=== PATIENT | female | born 1935 | race Two or more races ===

== ENCOUNTER → 2018-10-11 | Outpatient (CLI) | payer BC ==
[2018-10-11 10:45] LABS: Basophils # (auto) 0.1 uL; Eosinophils # (auto) 0.2 uL; Eosinophils % (auto) 3.5 % (0.0-7.0); Hematocrit 39.8 % (36.0-46.0); Hemoglobin 13.7 g/dL (12.2-16.2); Lymphocytes # (auto) 2.5 uL; Lymphocytes % (auto) 38.2 % (10.0-50.0); Mean Corpuscular Hemoglobin 30.5 pg (28.0-32.0); Mean Corpuscular Hgb Conc. 34.3 g/dL (32.0-36.0); Monocytes # (auto) 0.5 uL; Monocytes % (auto) 7.1 % (0.0-12.0); Neutrophils # (auto) 3.3 uL; Neutrophils % (auto) 50.2 % (37.0-80.0); Nucleated Red Blood Cells % 0.1 %; Platelet Count (auto) 224 10^3/uL (140-450); Red Blood Cells 4.48 10^6/uL (4.0-5.20); Red Cell Distribution Width 13.8 % (11.8-14.3); White Blood Cell 6.5 10^3/uL (4.4-10.8)
[2018-10-11 11:05] LABS: Albumin 3.9 g/dL (3.4-5.0); Calcium 9.1 mg/dL (8.5-10.1)
[2018-10-11 11:10] LABS: BUN/Creatinine Ratio 21.4; Bilirubin, Total 0.6 mg/dL (0.2-1.0); CRP High Sensitivity 0.3 mg/dL (< 0.3); Total Protein 7.8 g/dL (6.4-8.2)
== END | disposition home or self-care (01) ==
LOC: LAB 09:34
PROVIDERS: ATTEND Internal Medicine
DX: Z12.11 Encounter for screening for malignant neoplasm of colon (principal); I10 Essential (primary) hypertension
CPT/HCPCS: 36415; 80053; 80061; 82306; 84439; 84443; 85025; 85652; 86038; 86141; 86200; 86225; 86431

== ENCOUNTER → 2018-12-20 | Outpatient (CLI) | payer BC, MEDICARE | END | disposition home or self-care (01) | LOC: US 10:36 | PROVIDERS: ATTEND Internal Medicine | DX: N63.21 Unspecified lump in the left breast, upper outer quadrant (principal) | CPT/HCPCS: 19083; 88305; 88342; J2001; 10022; 76942 ==

== ENCOUNTER → 2018-12-27 | Outpatient (CLI) | payer BC, MEDICARE | END | disposition home or self-care (01) | LOC: US 09:19 | PROVIDERS: ATTEND Internal Medicine | DX: C50.412 Malignant neoplasm of upper-outer quadrant of left female breast (principal); D24.2 Benign neoplasm of left breast; Z17.0 Estrogen receptor positive status [ER+] | CPT/HCPCS: 10022; 19083; 76942; 88341 ==

== ENCOUNTER → 2019-02-08 | Outpatient (CLI) | payer BC ==
[2019-02-08 10:41] LABS: Basophils # (auto) 0.1 uL; Basophils % (auto) 1.2 % (0.0-2.0); Eosinophils # (auto) 0.2 uL; Eosinophils % (auto) 3.1 % (0.0-7.0); Hematocrit 39.2 % (36.0-46.0); Hemoglobin 13.2 g/dL (12.2-16.2); Lymphocytes # (auto) 2.5 uL; Lymphocytes % (auto) 43.9 % (10.0-50.0); Mean Corpuscular Hemoglobin 30.7 pg (28.0-32.0); Mean Corpuscular Hgb Conc. 33.7 g/dL (32.0-36.0); Monocytes # (auto) 0.5 uL; Monocytes % (auto) 8.9 % (0.0-12.0); Neutrophils # (auto) 2.5 uL; Neutrophils % (auto) 42.9 % (37.0-80.0); Nucleated Red Blood Cells % 0.1 %; Platelet Count (auto) 187 10^3/uL (140-450); Red Blood Cells 4.31 10^6/uL (4.0-5.20); Red Cell Distribution Width 13.6 % (11.8-14.3); White Blood Cell 5.7 10^3/uL (4.4-10.8)
[2019-02-08 11:03] LABS: Urine Bacteria NONE SEEN /hpf (None Seen); Urine Blood Negative /uL (Negative); Urine Specific Gravity 1.018 (1.001-1.035); Urine WBC 20 /hpf (0 - 5)
[2019-02-08 11:17] LABS: Albumin 3.6 g/dL (3.4-5.0); Potassium 3.5 mmol/L (3.5-5.1)
[2019-02-08 11:25] LABS: BUN/Creatinine Ratio 18.6; Bilirubin, Total 0.5 mg/dL (0.2-1.0); Calcium 9.1 mg/dL (8.5-10.1); Total Protein 7.1 g/dL (6.4-8.2)
[2019-02-08 11:26] LABS: Free T4 (Free Thyroxine) 1.1 ng/dL (0.89-1.76)
[2019-02-08 11:27] LABS: T3 Total 1.14 ng/mL (0.60-1.81)
== END | disposition home or self-care (01) ==
LOC: LAB 10:26
PROVIDERS: ATTEND Internal Medicine
DX: Z01.818 Encounter for other preprocedural examination (principal)
CPT/HCPCS: 36415; 80053; 80061; 81001; 82306; 82607; 83036; 84439; 84443; 84480; 85025

== ENCOUNTER → 2019-03-14 | Outpatient (CLI) | payer BC ==
[2019-03-14 11:55] LABS: Basophils # (auto) 0.1 uL; Basophils % (auto) 1.2 % (0.0-2.0); Eosinophils # (auto) 0.2 uL; Eosinophils % (auto) 3.5 % (0.0-7.0); Hematocrit 38.6 % (36.0-46.0); Lymphocytes # (auto) 3.4 uL; Lymphocytes % (auto) 48.2 % (10.0-50.0); Mean Corpuscular Hemoglobin 30.4 pg (28.0-32.0); Mean Corpuscular Hgb Conc. 33.7 g/dL (32.0-36.0); Mean Corpuscular Volume 90.1 fL (80.0-100.0); Monocytes # (auto) 0.6 uL; Monocytes % (auto) 8.7 % (0.0-12.0); Neutrophils # (auto) 2.7 uL; Neutrophils % (auto) 38.4 % (37.0-80.0); Nucleated Red Blood Cells % 0.1 %; Platelet Count (auto) 212 10^3/uL (140-450); Red Blood Cells 4.28 10^6/uL (4.0-5.20); Red Cell Distribution Width 13.9 % (11.8-14.3)
[2019-03-14 12:19] LABS: INR 1.14 (0.9-1.15)
[2019-03-14 12:27] LABS: Urine Blood Negative /uL (Negative); Urine Specific Gravity 1.011 (1.001-1.035)
[2019-03-14 12:31] LABS: Albumin 3.6 g/dL (3.4-5.0); Calcium 9.1 mg/dL (8.5-10.1); Potassium 3.7 mmol/L (3.5-5.1)
[2019-03-14 12:34] LABS: BUN/Creatinine Ratio 20.8; Bilirubin, Total 0.4 mg/dL (0.2-1.0); Total Protein 7.2 g/dL (6.4-8.2)
== END | disposition home or self-care (01) ==
LOC: LAB 11:37
PROVIDERS: ATTEND Specialist
DX: Z01.812 Encounter for preprocedural laboratory examination (principal); H25.12 Age-related nuclear cataract, left eye; D68.32 Hemorrhagic disorder due to extrinsic circulating anticoagulants; Z79.01 Long term (current) use of anticoagulants
CPT/HCPCS: 36415; 80053; 81003; 85025; 85610; 85730

== ENCOUNTER → 2019-04-11 | Outpatient (CLI) | payer BC | END | disposition home or self-care (01) | LOC: XYW 07:41 | PROVIDERS: ATTEND Internal Medicine | DX: Z01.818 Encounter for other preprocedural examination (principal) | CPT/HCPCS: 93306 ==

== ENCOUNTER → 2019-04-16 | Outpatient (CLI) | payer BC ==
[~2019-04-16] VITALS: Ht 142.2 cm; Wt 66.2 kg
[~2019-04-16] MED LIST: ADENOSINE 56 MG in GIVE UN-DILUTED 0 ML IV STA
[2019-04-16 10:24] VITALS: BP 175/73
== END | disposition home or self-care (01) ==
LOC: XY 08:55
PROVIDERS: ATTEND Internal Medicine
DX: Z01.810 Encounter for preprocedural cardiovascular examination (principal)
CPT/HCPCS: 78452; 93017; A9500; J0153

== ENCOUNTER → 2019-05-09 | Outpatient (CLI) | payer BC ==
[~2019-05-09] MED LIST changes: -ADENOSINE 56 MG in GIVE UN-DILUTED 0 ML IV STA; +AMLO5TAB15 PO; +LOSA-39 PO
[2019-05-09 12:32] LABS: Urine Blood Negative /uL (Negative); Urine Specific Gravity 1.023 (1.001-1.035)
[2019-05-09 12:38] LABS: Basophils # (auto) 0.1 10 ^3/uL (0-0.2); Basophils % (auto) 1.2 % (0.0-2.0); Eosinophils # (auto) 0.2 10 ^3/uL (0-0.8); Eosinophils % (auto) 3.3 % (0.0-7.0); Hematocrit 39.3 % (36.0-46.0); Hemoglobin 13.4 g/dL (12.2-16.2); Lymphocytes # (auto) 2.8 10 ^3/uL (0.4-5.4); Lymphocytes % (auto) 43.7 % (10.0-50.0); Mean Corpuscular Hemoglobin 31.3 pg (28.0-32.0); Mean Corpuscular Hgb Conc. 34.2 g/dL (32.0-36.0); Mean Corpuscular Volume 91.6 fL (80.0-100.0); Monocytes # (auto) 0.5 10 ^3/uL (0-1.3); Monocytes % (auto) 7.5 % (0.0-12.0); Neutrophils # (auto) 2.8 10 ^3/uL (1.6-8.6); Neutrophils % (auto) 44.3 % (37.0-80.0); Nucleated Red Blood Cells % 0.1 %; Platelet Count (auto) 229 10^3/uL (140-450); Red Cell Distribution Width 13.7 % (11.8-14.3); White Blood Cell 6.4 10^3/uL (4.4-10.8)
[2019-05-09 13:30] LABS: INR 1.18 (0.9-1.15); Partial Thromboplastin Time 27.3 sec (23.64-32.05)
[2019-05-09 13:40] LABS: Albumin 3.9 g/dL (3.4-5.0); Calcium 9.5 mg/dL (8.5-10.1); Potassium 3.9 mmol/L (3.5-5.1)
[2019-05-09 13:43] LABS: BUN/Creatinine Ratio 24.7; Bilirubin, Total 0.6 mg/dL (0.2-1.0); Total Protein 7.6 g/dL (6.4-8.2)
== END | disposition home or self-care (01) ==
LOC: LAB 11:58
PROVIDERS: ATTEND Specialist
DX: Z01.812 Encounter for preprocedural laboratory examination (principal); H25.11 Age-related nuclear cataract, right eye; D68.32 Hemorrhagic disorder due to extrinsic circulating anticoagulants; Z79.01 Long term (current) use of anticoagulants
CPT/HCPCS: 36415; 80053; 81003; 85025; 85610; 85730

== ENCOUNTER 2019-05-24 07:56 | Day surgery (SDC) | payer BC ==
[2019-05-23 10:08] LABS: Basophils # (auto) 0 10 ^3/uL (0-0.2); Basophils % (auto) 0.7 % (0.0-2.0); Eosinophils # (auto) 0.2 10 ^3/uL (0-0.8); Eosinophils % (auto) 2.5 % (0.0-7.0); Hematocrit 40.7 % (36.0-46.0); Hemoglobin 13.5 g/dL (12.2-16.2); Lymphocytes # (auto) 2.9 10 ^3/uL (0.4-5.4); Lymphocytes % (auto) 41.8 % (10.0-50.0); Mean Corpuscular Hemoglobin 30.7 pg (28.0-32.0); Mean Corpuscular Hgb Conc. 33.3 g/dL (32.0-36.0); Mean Corpuscular Volume 92.1 fL (80.0-100.0); Monocytes # (auto) 0.5 10 ^3/uL (0-1.3); Monocytes % (auto) 7.4 % (0.0-12.0); Neutrophils # (auto) 3.3 10 ^3/uL (1.6-8.6); Neutrophils % (auto) 47.6 % (37.0-80.0); Platelet Count (auto) 225 10^3/uL (140-450); Red Blood Cells 4.41 10^6/uL (4.0-5.20); Red Cell Distribution Width 13.6 % (11.8-14.3); White Blood Cell 6.9 10^3/uL (4.4-10.8)
[2019-05-23 10:26] LABS: Albumin 3.9 g/dL (3.4-5.0); Calcium 9.6 mg/dL (8.5-10.1); Potassium 3.4 mmol/L (3.5-5.1)
[2019-05-23 10:29] LABS: INR 1.18 (0.9-1.15); Partial Thromboplastin Time 27.6 sec (23.64-32.05)
[2019-05-23 10:30] LABS: BUN/Creatinine Ratio 18.6; Bilirubin, Total 0.6 mg/dL (0.2-1.0); Total Protein 7.7 g/dL (6.4-8.2)
[~2019-05-24] VITALS: Ht 142.2 cm; Wt 66.2 kg
[2019-05-24] MEDS ORDERED: IODIXANOL 320MG/ML 100ML BTL IV ONE ×2 (08:22→09:43)
[2019-05-24] MEDS ORDERED: LIDOCAINE 2%HCL (LOCAL ANESTH.) INJ 20ML MDV ONE (08:22)
[2019-05-24] MEDS ORDERED: HEPARIN SODIUM (PORCINE) 5000 UNITS/ML 1ML VIAL ONE (09:02)
[2019-05-24] MEDS ORDERED: ANGIOMAX 250 MG VIAL IV ONE (09:02)
[2019-05-24] MEDS ORDERED: MIDAZOLAM HCL 1MG/1ML-2 ML VIAL ONE (09:03)
[2019-05-24] MEDS ORDERED: fentaNYL CITRATE 100 MCG/2 ML VL ONE (09:03)
[2019-05-24] MEDS ORDERED: VERAPAMIL 2.5MG/ML INJ 2ML VIAL IV ONE (09:03)
[2019-05-24] MEDS ORDERED: SODIUM CHL 0.9% 50 ML ONE ×2 (09:03→09:38)
[2019-05-24] MEDS ORDERED: NITROGLYCERIN 5MG/ML 10ML VIAL IV ONE (09:38)
[2019-05-24] MEDS ORDERED: ASPirin 325 MG TAB ONE (09:51)
[2019-05-24] MEDS ORDERED: TICAGRELOR 90 MG TAB ONE (09:51)
[2019-05-24] MEDS ORDERED: ACETAMINOPHEN 500 MG TAB PO PRN (12:45)
[2019-06-17] MEDS ORDERED: ASPI-404 PO (08:47)
[2019-06-17] MEDS ORDERED: LOSA-69 PO (08:47)
[2019-06-17] MEDS ORDERED: TICA90TA PO (08:47)
== END 2019-05-24 15:15 | disposition home or self-care (01) ==
LOC: CATH 07:56
PROVIDERS: ATTEND Internal Medicine
DX: R94.39 Abnormal result of other cardiovascular function study (principal); I25.10 Atherosclerotic heart disease of native coronary artery without angina pectoris; C50.919 Malignant neoplasm of unspecified site of unspecified female breast; I10 Essential (primary) hypertension; Z79.899 Other long term (current) drug therapy; Z98.890 Other specified postprocedural states
CPT/HCPCS: 36415; 80053; 85025; 85610; 85730; 93458; C1725; C1769; C1874; C1887; C1894; C9600; J0583; J1644; J2250; J3010; J3490; Q9967; 99152; 99153

== ENCOUNTER 2019-06-19 06:23 | Inpatient (IN) | payer BC ==
[2019-06-17 09:14] LABS: Basophils # (auto) 0 10 ^3/uL (0-0.2); Basophils % (auto) 0.5 % (0.0-2.0); Eosinophils # (auto) 0.2 10 ^3/uL (0-0.8); Eosinophils % (auto) 2.6 % (0.0-7.0); Hematocrit 39.8 % (36.0-46.0); Hemoglobin 13.8 g/dL (12.2-16.2); Lymphocytes # (auto) 4.2 10 ^3/uL (0.4-5.4); Lymphocytes % (auto) 44.6 % (10.0-50.0); Mean Corpuscular Hemoglobin 31.6 pg (28.0-32.0); Mean Corpuscular Hgb Conc. 34.7 g/dL (32.0-36.0); Mean Corpuscular Volume 91.2 fL (80.0-100.0); Monocytes # (auto) 0.7 10 ^3/uL (0-1.3); Monocytes % (auto) 7.8 % (0.0-12.0); Neutrophils # (auto) 4.1 10 ^3/uL (1.6-8.6); Neutrophils % (auto) 44.5 % (37.0-80.0); Nucleated Red Blood Cells % 0.2 %; Platelet Count (auto) 236 10^3/uL (140-450); Red Blood Cells 4.36 10^6/uL (4.0-5.20); Red Cell Distribution Width 13.8 % (11.8-14.3); White Blood Cell 9.3 10^3/uL (4.4-10.8)
[2019-06-17 09:22] LABS: Urine Bacteria NONE SEEN /hpf (None Seen); Urine Blood Negative /uL (Negative); Urine Specific Gravity 1.007 (1.001-1.035); Urine WBC 4 /hpf (0 - 5)
[2019-06-17 09:31] LABS: Albumin 3.9 g/dL (3.4-5.0); BUN/Creatinine Ratio 11.5; Calcium 9.2 mg/dL (8.5-10.1)
[2019-06-17 09:34] LABS: INR 1.18 (0.9-1.15); Partial Thromboplastin Time 27.3 sec (23.64-32.05); Total Protein 7.8 g/dL (6.4-8.2)
[2019-06-17 09:37] LABS: Potassium 2.8 mmol/L (3.5-5.1)
[2019-06-19] VITALS (24 sets, daily range): BP systolic 96–132; BP diastolic 38–59
[~2019-06-19] VITALS: Ht 142.2 cm; Wt 72.4 kg
[~2019-06-19 06:23] MED LIST changes: +ASPI-404 PO; -LOSA-39 PO; +LOSA-69 PO; +TICA90TA PO
[2019-06-19] MEDS ORDERED: ceFAZolin 1GM/50ML 50 ML IV ONE (07:03)
[2019-06-19] MEDS ORDERED: POTASSIUM CHL 20MEQ/100ML 100 ML IV ONE ×3 (07:28→08:30)
[2019-06-19] MEDS ORDERED: LIDOCAINE 1% HCL (LOCAL ANESTH.) INJ 20ML MDV ONE (07:29)
[2019-06-19] MEDS ORDERED: SUCCINYLCHOLINE CHLORIDE 20 MG/ML 10ML VIAL IV ONE (07:29)
[2019-06-19] MEDS ORDERED: MIDAZOLAM HCL 1MG/1ML-2 ML VIAL ONE ×2 (07:35→13:26)
[2019-06-19] MEDS ORDERED: ETOMIDATE (2MG/ML) 20ML VIAL IV ONE (07:37)
[2019-06-19] MEDS ORDERED: ROCURONIUM 10MG/ML 10ML VIAL IV ONE (07:37)
[2019-06-19] MEDS ORDERED: METOCLOPRAMIDE HCL 5MG/ml INJ 2ml VIAL ONE (07:39)
[2019-06-19] MEDS ORDERED: fentaNYL CITRATE 100 MCG/2 ML VL ONE (07:52)
[2019-06-19] MEDS ORDERED: BUPIVACAINE W/ EPINEPH 0.25% INJ 50ML MDV ONE (07:55)
[2019-06-19] MEDS ORDERED: NALOXONE HCL 0.4 MG/ML VIAL IV PRN ×2 (08:00→14:45)
[2019-06-19] MEDS ORDERED: hydrALAZINE HCL 20 MG/ML VL IV PRN (08:00)
[2019-06-19] MEDS ORDERED: HYDROmorphone HCL 2 MG/ML VL IV PRN ×4 (08:00→14:45)
[2019-06-19] MEDS ORDERED: ONDANSETRON HCL 4 MG/2 ML VIAL IV PRN ×2 (08:00→14:45)
[2019-06-19] MEDS ORDERED: NEOSTIGMINE 1 MG/ML INJ (10mg/10ML VIAL) ONE ×2 (08:28→14:20)
[2019-06-19] MEDS ORDERED: GLYCOPYRROLATE 0.2 MG/ML 1ML VIAL ONE ×2 (08:28→14:20)
[2019-06-19] MEDS ORDERED: D5W/SOD CHL 0.45%/KCL 40MEQ 1,000 ML IV SCH (08:45)
[2019-06-19] MEDS ORDERED: ALBUMIN 5% 250 ML IV ONE (09:30)
[2019-06-19] MEDS ORDERED: ALBUMIN 25% 50 ML IV ONE (09:30)
[2019-06-19] MEDS ORDERED: MORPHINE SULF INJ 2 MG/ML SYRINGE 1ML IV PRN ×2 (10:15→12:30)
[2019-06-19] MEDS ORDERED: NITROGLYCERIN 0.4 MG SL TAB SL PRN ×2 (10:15→12:30)
[2019-06-19] MEDS ORDERED: NOREPINEPHRINE 8 MG/250ML KIT 250 ML IV ONE (10:18)
[2019-06-19] MEDS: NOREPINEPHRINE 8 MG/250ML KIT 250 ML IV SCH ×2 (10:43→16:34)
[2019-06-19 11:28] LABS: Hematocrit 28.9 % (36.0-46.0); Hemoglobin 9.7 g/dL (12.2-16.2)
[2019-06-19 11:41] LABS: INR 1.47 (0.9-1.15)
[2019-06-19] MEDS ORDERED: phytonadione 1 ML ONE (12:08)
[2019-06-19] MEDS: PHYTONADIONE (VIT K)10 MG/ML 1ML VIAL SUBCUT ONE ×2 (12:15→12:18)
[2019-06-19] MEDS: SODIUM CHLORIDE 0.9% 1,000 ML IV SCH (12:30)
[2019-06-19] MEDS ORDERED: SODIUM CHLORIDE 0.9% 500 ML IV ONE (12:30)
[2019-06-19] MEDS ORDERED: PHENYLEPHRINE HCL 10 MG/ML VL ONE (13:40)
[2019-06-19] MEDS ORDERED: diphenhdrAMINE HCL 50 MG/1 ML VL ONE (13:40)
[2019-06-19] MEDS ORDERED: GELATIN 1 SPONGE SIZE 100 TOP ONE (13:53)
[2019-06-19] MEDS ORDERED: ePHEDrine SULFATE 50 MG/ML AMP IV PRN (14:45)
[2019-06-19] MEDS: ceFAZolin 1GM/50ML 50 ML IV SCH ×2 (16:19→20:49)
[2019-06-19 16:38] LABS: Hematocrit 31.9 % (36.0-46.0); Hemoglobin 10.8 g/dL (12.2-16.2)
--- NOTE | 2019-06-19 17:30 | NUR ---
Admit to ICU JAYSON STAUFFER admitted to [facility] from recovery s/p LT mastectomy via hospital bed on bus driver/monitor, and portable 02. Patient connected to unit monitoring and oxygen, and weighed by bedscale. Patient awake and alert. No S/S of SOB/distress or pain. Patient saturation 98% at 2 LPM oxygen via nasal cannula. Levophed running at 30mcg/min via RT forearm. Ismeal wrap on chest, dry and intact. LT chest chest tubes draining serosanguinous. See interventions for complete assessment. Patient oriented to Sushma early RN, unit, room, bed, and unit policies regarding patient care and visiting hours. All questions and concerns addressed, patient verbalized understanding. Bed locked on low position, side rails up x2, bed alarms on at all times, call gaston within reach, instructed to call for needed assistance. Will continue to monitor.
--- NOTE | 2019-06-19 18:00 | NUR ---
IV removal RT upper arm IV swollen and tender, discontinued with sterile technique, catheter fully intact. Pressure dressing applied to site. Patient tolerated procedure well. Addendum: 06/20/19 at 1136 by Sushma Connor RN RT inner forearm
--- NOTE | 2019-06-19 18:38 | NUR ---
MRSA swab sent to lab
--- NOTE | 2019-06-19 19:45 | NUR ---
IV insertion IV access obtained, via clean sterile technique by inserting [22] gauge catheter at [RIGHT FOREARM] after [1] attempt(s). IV secured properly. No trauma to site. Patient tolerated well. NOTE: 2ND IV SITE
--- NOTE | 2019-06-19 20:00 | NUR ---
SHIFT OPENING MARLENI
--- NOTE | 2019-06-19 20:00 | NUR ---
SHIFT OPENING NOTE RECEIVED PATIENT AWAKE, ALERT AND ORIENTED X4. NO SOB OR DISTRESS NOTED. 8/10 PAIN TO CHEST AREA, WILL MEDICATE PER ORDER. POST OP LEFT MASTECTOMY AND EVACUATION OF HEMATOMA, [address] DRAINING RED OUTPUT. LUI WRAP AROUND CHEST. ON 2L N/C. ON LEVOPHED AT 30 MCG/MIN TO RIGHT WRIST. NO EXTRAVASATION NOTED. WILL START TITRATING DOWN PER PROTOCOL. ANDERSON CATH DRAINING YELLOW URINE TO GRAVITY. PHYSICAL ASSESSMENT COMPLETED, SEE INTERVENTIONS. INSTRUCTED ON POC AND TO CALL FOR ASSIST NEEDED. BED IS IN THE LOWEST POSITION WITH SIDE RAILS UP X2, CALL LIGHT IS WITHIN REACH.
[2019-06-19] MEDS: ACETAMINOPHEN/CODEINE#3 (300/30mg) TAB PO PRN (20:12)
--- NOTE | 2019-06-19 21:10 | NUR ---
RECEIVED A CALL FROM DEMARCUS MENCHACA. PASSWORD SET UP: SHANEL UPDATED HIM ON PATIENTS STATUS. TRANSFERRED PHONE CALL INTO PATIENTS ROOM.
[2019-06-20] VITALS (41 sets, daily range): BP systolic 91–117; BP diastolic 36–53
[2019-06-20] MEDS: NOREPINEPHRINE 8 MG/250ML KIT 250 ML IV SCH (01:48)
[2019-06-20] MEDS: SODIUM CHLORIDE 0.9% 1,000 ML IV SCH ×2 (01:57→18:13)
[2019-06-20] MEDS: ACETAMINOPHEN/CODEINE#3 (300/30mg) TAB PO PRN (03:09)
[2019-06-20 03:19] LABS: Basophils # (auto) 0 10 ^3/uL (0-0.2); Basophils % (auto) 0.4 % (0.0-2.0); Eosinophils # (auto) 0 10 ^3/uL (0-0.8); Eosinophils % (auto) 0.2 % (0.0-7.0); Hematocrit 24.8 % (36.0-46.0); Hemoglobin 8.7 g/dL (12.2-16.2); Lymphocytes # (auto) 2.4 10 ^3/uL (0.4-5.4); Lymphocytes % (auto) 29.1 % (10.0-50.0); Mean Corpuscular Hemoglobin 31.5 pg (28.0-32.0); Mean Corpuscular Hgb Conc. 34.9 g/dL (32.0-36.0); Mean Corpuscular Volume 90.4 fL (80.0-100.0); Monocytes # (auto) 0.9 10 ^3/uL (0-1.3); Monocytes % (auto) 10.7 % (0.0-12.0); Neutrophils # (auto) 4.9 10 ^3/uL (1.6-8.6); Neutrophils % (auto) 59.6 % (37.0-80.0); Platelet Count (auto) 115 10^3/uL (140-450); Red Blood Cells 2.75 10^6/uL (4.0-5.20); Red Cell Distribution Width 15.9 % (11.8-14.3); White Blood Cell 8.2 10^3/uL (4.4-10.8)
[2019-06-20 03:34] LABS: BUN/Creatinine Ratio 15.4; Calcium 6.7 mg/dL (8.5-10.1); Potassium 3.8 mmol/L (3.5-5.1)
--- NOTE | 2019-06-20 04:30 | NUR ---
MORNING HYGIENE CARE FULL BED BATH PERFORMED USING WARM SOAPY WASH CLOTHES. GOWN CHANGED. PARTIAL LINEN CHANGED. PATIENT REPOSITIONED FOR COMFORT. TOLERATED IT WELL.
[2019-06-20] MEDS: ceFAZolin 1GM/50ML 50 ML IV SCH ×3 (04:54→20:29)
[2019-06-20] MEDS: MORPHINE SULF INJ 2 MG/ML SYRINGE 1ML IV PRN (04:55)
--- NOTE | 2019-06-20 07:17 | NUR ---
END OF SHIFT REPORT GIVEN AND CARE ENDORSED TO JAVIER CHAMBERS.
--- NOTE | 2019-06-20 08:00 | NUR ---
Opening Shift Note Assumed care of patient, awake and alert. No S/S of distress/SOB or pain. Patient saturation 95% at 2 LPM oxygen via nasal cannula. Ismael wrap around chest, dry and intact, 2 RADHA draining serosanguinous. See interventions for complete assessment. Bed locked on low position, side rails up x2, bed alarms on at all times, call gaston within reach, instructed on POC and to call for assist PRN, will continue to monitor for changes Q1hr and PRN.
--- NOTE | 2019-06-20 10:13 | NUR ---
Dr Olvera at bedside, updated on patient's status. Patient seen and examined. No new orders at this time.
--- NOTE | 2019-06-20 10:57 | NUR ---
Dr Vital at bedside, updated on patient's status. Patient seen and examined. Will carry out new orders.
--- NOTE | 2019-06-20 11:00 | NUR ---
Patient complaining of RT arm pain 06/06, Dr Vital aware, will give Tramadol PRN.
--- NOTE | 2019-06-20 11:50 | NUR ---
Dr Johnson at bedside, updated on patient's status. Informed of patient's low BP, verbalized understanding. Patient seen and examined. Received verbal orders to start patient on Midodrine. Will also start patient on Plavix and Aspirin if ok with Dr Olvera.
[2019-06-20] MEDS ORDERED: traMADol HCL 50 MG TAB ONE (12:02)
[2019-06-20] MEDS: traMADol HCL 50 MG TAB PO PRN ×2 (12:03→19:52)
[2019-06-20] MEDS: MIDODRINE HCL 10 MG TAB PO SCH ×2 (12:04→18:13)
--- NOTE | 2019-06-20 13:00 | NUR ---
Paged Dr Olvera and called back, inquired if patient can be started on Aspirin and Plavix per Dr Alex MD states "Will wait until tomorrow."
--- NOTE | 2019-06-20 18:00 | NUR ---
RADHA # 1 - zero output RADHA # 2 - 25 ml
--- NOTE | 2019-06-20 19:00 | NUR ---
Drained another 50ml from RADHA #2
--- NOTE | 2019-06-20 20:00 | NUR ---
SHIFT OPENING NOTE RECEIVED PATIENT AWAKE, ALERT AND ORIENTED X4. NO SOB OR DISTRESS NOTED. 10/10 PAIN TO RIGHT ARM, WILL MEDICATE PER ORDER. POST OP LEFT MASTECTOMY AND EVACUATION OF HEMATOMA YESTERDAY, [address] DRAINING RED OUTPUT. LUI WRAP AROUND CHEST. ON 2L N/C. ANDERSON CATH DRAINING YELLOW URINE TO GRAVITY. PHYSICAL ASSESSMENT COMPLETED, SEE INTERVENTIONS. INSTRUCTED ON POC AND TO CALL FOR ASSIST NEEDED. BED IS IN THE LOWEST POSITION WITH SIDE RAILS UP X2, CALL LIGHT IS WITHIN REACH.
[2019-06-21] VITALS (10 sets, daily range): BP systolic 92–163; BP diastolic 41–64
[2019-06-21 03:58] LABS: Basophils # (auto) 0 10 ^3/uL (0-0.2); Eosinophils # (auto) 0.1 10 ^3/uL (0-0.8); Hematocrit 20.4 % (36.0-46.0); Monocytes # (auto) 0.8 10 ^3/uL (0-1.3)
[2019-06-21 04:00] LABS: Basophils % (auto) 0.6 % (0.0-2.0); Eosinophils % (auto) 1.6 % (0.0-7.0); Hemoglobin 7.1 g/dL (12.2-16.2); Lymphocytes % (auto) 29.1 % (10.0-50.0); Mean Corpuscular Hemoglobin 31.7 pg (28.0-32.0); Mean Corpuscular Hgb Conc. 35.1 g/dL (32.0-36.0); Mean Corpuscular Volume 90.6 fL (80.0-100.0); Neutrophils % (auto) 57.7 % (37.0-80.0); Nucleated Red Blood Cells % 0.2 %; Platelet Count (auto) 94 10^3/uL (140-450); Red Blood Cells 2.25 10^6/uL (4.0-5.20); Red Cell Distribution Width 15.8 % (11.8-14.3)
[2019-06-21 04:15] LABS: BUN/Creatinine Ratio 14.1; Calcium 6.9 mg/dL (8.5-10.1); Potassium 3.4 mmol/L (3.5-5.1)
[2019-06-21] MEDS: SODIUM CHLORIDE 0.9% 1,000 ML IV SCH (04:30)
[2019-06-21] MEDS: ceFAZolin 1GM/50ML 50 ML IV SCH ×3 (05:53→22:22)
[2019-06-21] MEDS: MIDODRINE HCL 10 MG TAB PO SCH ×3 (05:54→18:00)
--- NOTE | 2019-06-21 06:05 | NUR ---
MORNING HYGIENE CARE FULL BED BATH PERFORMED USING CHG WIPES AND WARM SOAPY WASH CLOTHES. GOWN CHANGED. PARTIAL LINEN CHANGED. ORAL CARE DONE. REPOSITIONED FOR COMFORT. TOLERATED IT WELL.
--- NOTE | 2019-06-21 07:10 | NUR ---
END OF SHIFT REPORT GIVEN AND CARE ENDORSED TO CORRIE CHAMBERS.
--- NOTE | 2019-06-21 08:00 | NUR ---
DR. RUSSO CALLED TO INFORM OF HGB OF 7.1 AWAITING CALL BACK.
--- NOTE | 2019-06-21 09:00 | NUR ---
Midline Placement: Patient educated on need for midline placement. All risks and benefits explained and all questions and concerns addresses prior to procedure. 18g/10cm midline inserted via right cephalic vein using Ultrasound. Sterile technique utilized. Blood return obtained from lumen and flushed easily with NS using proper technique. Midline secured with saline lock; biodisc and occlusive dressing applied. Primary RN notified. Midline lot #[id number]
--- NOTE | 2019-06-21 09:10 | NUR ---
DR. RUSSO CALLED TO INFORM OF HGB OF 7.1 AWAITING CALL BACK.
[2019-06-21] MEDS: CLOPIDOGREL BISULFATE 75 MG TAB PO SCH ×2 (10:00→16:43)
[2019-06-21] MEDS: ASPirin 81 mg TAB PO SCH ×2 (10:00→16:43)
--- NOTE | 2019-06-21 11:50 | NUR ---
1 UNIT OF [facility] STARTED TO INFUSE.
--- NOTE | 2019-06-21 11:50 | NUR ---
Dr. quevedo here to see patient. See MD noted and EMR for any new orders.
[2019-06-21] MEDS: Ensure HIGH Protein Chocolate 8oz Bottle PO SCH ×2 (12:00→18:27)
[2019-06-21] MEDS ORDERED: POTASSIUM CHL 20 Meq TABLET PO ONE (12:00)
--- NOTE | 2019-06-21 13:55 | NUR ---
[facility] INFUSION FINISHED. NO ADVERSE EFFECTS NOTED.
[2019-06-21 15:46] LABS: Hematocrit 26.9 % (36.0-46.0); Hemoglobin 9.2 g/dL (12.2-16.2)
--- NOTE | 2019-06-21 16:51 | NUR ---
UPDATED GRANDMANUELA KRAUS ON PATIENTS CURRENT POC. ANSWERED ALL QUESTIONS. EDUCATED TO CALL AT ANY TIME.
--- NOTE | 2019-06-21 17:52 | NUR ---
RADHA DRAIN #1 OUTPUT-100 #2 OUTPUT- 45
[2019-06-21] MEDS ORDERED: SENNA 8.6 MG TAB PO PRN (21:30)
[2019-06-21] MEDS: LACTULOSE 20Gm/30ML SOLN PO SCH (22:00)
[2019-06-21] MEDS: DOCUSATE SOD 100 MG CAP PO SCH (22:21)
[2019-06-22] MEDS: MIDODRINE HCL 10 MG TAB PO SCH ×3 (06:34→18:00)
[2019-06-22] MEDS: ceFAZolin 1GM/50ML 50 ML IV SCH ×3 (06:34→23:35)
--- NOTE | 2019-06-22 07:00 | NUR ---
Pt remained stable this shift. Denied pain. Both arms elevated on pillows throughout shift. Encouraged to drink ensure. RADHA's emptied this morning. Midline flushes and withdrawls well. Pt refused Lactulose last night and senna and colace were ordered and given instead. Report given to AM shift, care endorsed.
[2019-06-22 07:02] LABS: Basophils # (auto) 0 10 ^3/uL (0-0.2); Basophils % (auto) 0.4 % (0.0-2.0); Eosinophils # (auto) 0.2 10 ^3/uL (0-0.8); Eosinophils % (auto) 2.6 % (0.0-7.0); Hematocrit 24.6 % (36.0-46.0); Hemoglobin 8.6 g/dL (12.2-16.2); Lymphocytes # (auto) 1.6 10 ^3/uL (0.4-5.4); Lymphocytes % (auto) 23.1 % (10.0-50.0); Mean Corpuscular Hemoglobin 31.8 pg (28.0-32.0); Monocytes # (auto) 0.6 10 ^3/uL (0-1.3); Neutrophils # (auto) 4.6 10 ^3/uL (1.6-8.6); Neutrophils % (auto) 64.9 % (37.0-80.0); Nucleated Red Blood Cells % 0.2 %; Platelet Count (auto) 102 10^3/uL (140-450); Red Cell Distribution Width 15.5 % (11.8-14.3)
[2019-06-22 07:32] LABS: Potassium 3.7 mmol/L (3.5-5.1)
[2019-06-22 07:40] LABS: BUN/Creatinine Ratio 11.9; Calcium 8.3 mg/dL (8.5-10.1)
[2019-06-22 07:45] VITALS: BP 136/42
[2019-06-22] MEDS: Ensure HIGH Protein Chocolate 8oz Bottle PO SCH ×3 (08:10→18:25)
--- NOTE | 2019-06-22 09:00 | NUR ---
Patient had around 75% of breakfast, patient stated that her appetite is better than yesterday. No N/V noted. No active bleeding noted. Will confirm with MD with ASA and Plavix. Patient doesn't want to take Lactulose due to too strong for her.
[2019-06-22] MEDS: LACTULOSE 20Gm/30ML SOLN PO SCH ×2 (09:38→23:36)
[2019-06-22] MEDS: CLOPIDOGREL BISULFATE 75 MG TAB PO SCH (10:00)
[2019-06-22] MEDS: DOCUSATE SOD 100 MG CAP PO SCH ×2 (10:06→23:36)
[2019-06-22] MEDS: ASPirin 81 mg TAB PO SCH (11:07)
--- NOTE | 2019-06-22 11:15 | NUR ---
Dr. Biswas at the bedside, seen and examined patient at this time. Received new orders, plan of care discussed with patient, will continue to monitor lab and okay to transfer to Tele and taking ASA and Plavix.
--- NOTE | 2019-06-22 11:30 | NUR ---
PT at the bedside, patient walking by using front wheel walker, tolerated well.
[2019-06-22 11:36] VITALS: BP 159/89
--- NOTE | 2019-06-22 12:15 | NUR ---
Patient sitting on the chair, BP 159/89 mmHg, hold Midodrine at this time due to high BP.
--- NOTE | 2019-06-22 13:09 | NUR ---
Patient trying to use bedside commode, no BM. Still sitting on the chair. Had Lunch around 50%.
--- NOTE | 2019-06-22 13:40 | NUR ---
Report Report received from ALF[facility] Harper.
--- NOTE | 2019-06-22 13:55 | NUR ---
[facility] pt transferred to floor CRISTHIANJAYSON GIL Abel transferred to [address] via wheelchair on cardiac monitor technician (#[id number]) and portable 02. All patient medications and personal belongings transferred with patient to receiving floor. Patient care transferred to Gin CHAMBERS. Called her grandson (Willi) [phone] regarding transfer to Tele. Urine out put before transfer 700ml, JP1 30ml, JP2 20ml.
--- NOTE | 2019-06-22 13:55 | NUR ---
Patient Arrived Patient arrived to tele unit. No signs of distress at this time. Patient is currently laying in bed, respirations are even and unlabored. Safety precautions in place, will continue to monitor.
[2019-06-22 14:05] VITALS: BP 173/63
--- NOTE | 2019-06-22 14:35 | NUR ---
Assessment Physical assessment done. Patient shows no signs of distress at this time. Respirations even and unlabored on room air. Midline patent, flushes easily. RADHA drain 1 and 2 draining, sanguinous drainage. Doyle is secured, free of kinks, hung below bladder, clear yellow urine. Safety precautions, including restricted extremity precautions, in place. Will continue to monitor.
--- NOTE | 2019-06-22 14:40 | NUR ---
Surgical Site Assessment Patient had Left Modified Radical Mastectomy 06/19/2019. Denies pain at site. Dressing is clean, dry, and intact. RADHA 1 and 2: minimal sanguinous drainage.
--- NOTE | 2019-06-22 15:40 | NUR ---
Blood Pressure Blood pressure is currently 149/69, HR 108. Patient shows no signs of distress at this time. Respirations are even and unlabored. Safety precautions in place. Will continue to monitor.
--- NOTE | 2019-06-22 16:00 | NUR ---
Patient Rounds Patient sitting up in bed, no signs of distress at this time. Will continue to monitor.
[2019-06-22 17:00] VITALS: BP 139/68
--- NOTE | 2019-06-22 18:21 | NUR ---
Output RADHA drain output of sanguinous drainage: #1: 75mL output, #2 approximately 5mL. Doyle Bag output 850mL clear, yellow urine. Patient tolerated well, no signs of distress at this time. Respirations even and unlabored, will continue to monitor. Safety precautions in place.
--- NOTE | 2019-06-22 18:40 | NUR ---
Notified Notified Dr. Dunaway of held Midodrine due to patient BP 139/68. No new orders at this time.
[2019-06-22 19:32] LABS: Hematocrit 27.1 % (36.0-46.0); Hemoglobin 9.3 g/dL (12.2-16.2)
[2019-06-22 22:00] VITALS: BP 130/60
[2019-06-22] MEDS: MORPHINE SULF INJ 2 MG/ML SYRINGE 1ML IV PRN (23:41)
--- NOTE | 2019-06-23 03:00 | NUR ---
PT ASSISTED OOB TO BR AND NOTED TO AMB WITH STEADY GAIT. NO S/S OF ANY DISTRESS AT THIS TIME. PT STATES THAT SHE WAS UNABLE TO HAVE A BM AT THIS TIME.
[2019-06-23 05:00] VITALS: BP 151/68
--- NOTE | 2019-06-23 05:00 | NUR ---
RADHA DRAIN #1= 70MLS OF SANGUINEOUS DRAINAGE. RADHA#2= 5MLS SANGUINEOUS DRAINAGE.
[2019-06-23] MEDS: MIDODRINE HCL 10 MG TAB PO SCH ×3 (05:54→18:00)
[2019-06-23 06:05] LABS: Basophils # (auto) 0 10 ^3/uL (0-0.2); Basophils % (auto) 0.4 % (0.0-2.0); Eosinophils # (auto) 0.2 10 ^3/uL (0-0.8); Eosinophils % (auto) 2.9 % (0.0-7.0); Hematocrit 24.8 % (36.0-46.0); Hemoglobin 8.6 g/dL (12.2-16.2); Lymphocytes # (auto) 2.1 10 ^3/uL (0.4-5.4); Lymphocytes % (auto) 27.7 % (10.0-50.0); Mean Corpuscular Hemoglobin 31.9 pg (28.0-32.0); Mean Corpuscular Hgb Conc. 34.6 g/dL (32.0-36.0); Mean Corpuscular Volume 92.4 fL (80.0-100.0); Monocytes # (auto) 0.8 10 ^3/uL (0-1.3); Monocytes % (auto) 10.6 % (0.0-12.0); Neutrophils # (auto) 4.5 10 ^3/uL (1.6-8.6); Neutrophils % (auto) 58.4 % (37.0-80.0); Nucleated Red Blood Cells % 0.1 %; Platelet Count (auto) 140 10^3/uL (140-450); Red Blood Cells 2.69 10^6/uL (4.0-5.20); Red Cell Distribution Width 15.2 % (11.8-14.3); White Blood Cell 7.7 10^3/uL (4.4-10.8)
--- NOTE | 2019-06-23 06:20 | NUR ---
MASTECTOMY SITE REMAINS CDI AND OLD HEMATOMA SITE IS FLAT W/ SMALL BRUISE. APPEARS TO BE IMPROVING.
[2019-06-23 06:25] LABS: BUN/Creatinine Ratio 13.9; Calcium 8.5 mg/dL (8.5-10.1); Potassium 3.4 mmol/L (3.5-5.1)
[2019-06-23] MEDS: ceFAZolin 1GM/50ML 50 ML IV SCH ×3 (06:59→21:20)
--- NOTE | 2019-06-23 07:30 | NUR ---
Opening Note Assumed patient care from CYNTHIA RN.
[2019-06-23] MEDS: Ensure HIGH Protein Chocolate 8oz Bottle PO SCH ×3 (08:00→18:07)
--- NOTE | 2019-06-23 08:00 | NUR ---
Patient Rounds Patient is currently sitting up in bed. No signs of distress at this time. Respirations even and unlabored, denying pain at this time. Left breast incision clean, dry and intact; no signs of hematoma at this time, site is warm, dry, and soft, patient denies pain at site. Will continue to monitor.
[2019-06-23 09:00] VITALS: BP 127/66
[2019-06-23] MEDS: ASPirin 81 mg TAB PO SCH (09:56)
--- NOTE | 2019-06-23 09:56 | NUR ---
Out of Bed Patient is currently out of bed. Ambulated independently to bathroom and back to bed. Physical Therapist present. No signs of distress at this time. Will continue to monitor.
[2019-06-23] MEDS: DOCUSATE SOD 100 MG CAP PO SCH ×2 (09:57→21:21)
[2019-06-23] MEDS: CLOPIDOGREL BISULFATE 75 MG TAB PO SCH (09:57)
[2019-06-23] MEDS: LACTULOSE 20Gm/30ML SOLN PO SCH ×2 (09:57→21:20)
--- NOTE | 2019-06-23 10:00 | NUR ---
Incision reassessed Left breast incision site reassessed. Incision is well approximated, minimal drainage. No signs of hematoma at this time.
[2019-06-23 13:00] VITALS: BP 161/75
--- NOTE | 2019-06-23 14:15 | NUR ---
Doyle Emptied 1000mL clear, yellow urine.
--- NOTE | 2019-06-23 14:15 | NUR ---
Drains RADHA drain 1: 70mL sanguinous drainage RADHA drain 2: Approximately 5mL sanguinous drainage
--- NOTE | 2019-06-23 15:16 | NUR ---
Discontinued Doyle Catheter Per MD request, Doyle catheter removed. Patient tolerated well. No signs of distress at this time, respirations even and unlabored. Safety precautions in place. Will continue to monitor.
--- NOTE | 2019-06-23 16:09 | NUR ---
at bedside Dr. Biswas at bedside discussing plan of care with patient. Per Dr. Biswas, alanis catheter may be discontinued.
[2019-06-23] MEDS ORDERED: POTASSIUM EFFERVESENT TAB 25 MEQ PO ONE (16:15)
--- NOTE | 2019-06-23 16:20 | NUR ---
Discontinue med Per Dr. Biswas, discontinue Proamatine, due to increase in blood pressure.
--- NOTE | 2019-06-23 16:39 | NUR ---
Respiratory note: PT OFF O2 FOR 20 MIN. SPO2 STOOD ABOVE 94% ON RA. ROOM AIR ABG ORDERED TO QUALIFY FOR HOME O2. ABG NOT DRAWN AT THIS TIME. UNDERWRITING CLERK AT BEDSIDE. DR VELASQUEZ AND REYES CROWLEY MADE AWARE.
[2019-06-23 17:00] VITALS: BP 149/74
[2019-06-23 17:34] LABS: Hematocrit 26.9 % (36.0-46.0); Hemoglobin 9.2 g/dL (12.2-16.2)
--- NOTE | 2019-06-23 17:53 | NUR ---
RADHA drain RADHA drain #1: 30mL sanguinous drainage. No signs of distress at this time. Safety precautions in place. Will continue to monitor.
--- NOTE | 2019-06-23 17:53 | NUR ---
First Void Patient voided clear, yellow urine in toilet. Patient reports no irritation. Safety precautions in place, will continue to monitor.
--- NOTE | 2019-06-23 19:15 | NUR ---
OPENING NOTE- NOC SHIFT PATIENT IS ALERT AND ORIENTED X4, ANSWERS IN COMPLETE SENTENCES AND MAKES APPROPRIATE EYE CONTACT. NO S/SX OF DISTRESS, SOB OR PAIN. BEDSIDE TABLE IS WITHIN REACH, CALL LIGHT IS WITHIN REACH. DISCUSSED POC WITH PATIENT AND INSTRUCTED PATIENT TO CALL PRN; PATIENT VERBALIZED UNDERSTANDING. WILL CONTINUE TO MONITOR Q1H AND PRN.
--- NOTE | 2019-06-23 19:45 | NUR ---
Closing Note Report given to CYNTHIA CHAMBERS.
--- NOTE | 2019-06-23 21:20 | NUR ---
DRESSING REINFORCED DRESSING TO LEFT CHEST REINFORCED. DRESSING IS CLEAN AND DRY.
[2019-06-23] MEDS: traMADol HCL 50 MG TAB PO PRN (21:21)
--- NOTE | 2019-06-23 21:22 | NUR ---
PAIN MED PATIENT REPORTS PAIN OF 7 BUT PREFERS ULTRAM OVER MORPHINE.
[2019-06-23 22:00] VITALS: BP 148/65
--- NOTE | 2019-06-23 22:15 | NUR ---
PATIENT URINE OUT PUT 200 MLS, PATIENT USED PLASTIC INSERT CUP; PATIENT STATED THAT SHE DID NOT WANT TO GET UP TO THE TOILET WITH THE PUMP. RETEACHING ABOUT USING CALL LIGHT WITH ASSISTANCE REINFORCED; PATIENT VERBALIZED UNDERSTANDING BUT STATED THAT SHE "DID NOT WANT TO BOTHER".
--- NOTE | 2019-06-23 22:38 | NUR ---
PAIN ASSESSMENT PATIENT DENIES PAIN AT THIS TIME, SHE STATES PAIN COMES WITH MOVEMENT TO LEFT ARM BUT STATES THAT IT IS TOLERABLE. PATIENT REPORTS TO BE COMFORTABLE AND READY TO SLEEP.
[2019-06-24 05:36] VITALS: BP 133/85
[2019-06-24] MEDS: ceFAZolin 1GM/50ML 50 ML IV SCH ×2 (06:04→14:29)
[2019-06-24 06:54] LABS: Basophils # (auto) 0 10 ^3/uL (0-0.2); Basophils % (auto) 0.5 % (0.0-2.0); Eosinophils # (auto) 0.3 10 ^3/uL (0-0.8); Eosinophils % (auto) 3.3 % (0.0-7.0); Hematocrit 25.6 % (36.0-46.0); Lymphocytes # (auto) 2.1 10 ^3/uL (0.4-5.4); Lymphocytes % (auto) 25.5 % (10.0-50.0); Mean Corpuscular Hemoglobin 32.7 pg (28.0-32.0); Mean Corpuscular Hgb Conc. 35.3 g/dL (32.0-36.0); Mean Corpuscular Volume 92.5 fL (80.0-100.0); Monocytes # (auto) 0.8 10 ^3/uL (0-1.3); Monocytes % (auto) 9.3 % (0.0-12.0); Neutrophils # (auto) 5.1 10 ^3/uL (1.6-8.6); Neutrophils % (auto) 61.4 % (37.0-80.0); Nucleated Red Blood Cells % 0.4 %; Platelet Count (auto) 155 10^3/uL (140-450); Red Blood Cells 2.77 10^6/uL (4.0-5.20); Red Cell Distribution Width 14.9 % (11.8-14.3); White Blood Cell 8.3 10^3/uL (4.4-10.8)
[2019-06-24 07:06] LABS: Potassium 3.6 mmol/L (3.5-5.1)
[2019-06-24 07:14] LABS: BUN/Creatinine Ratio 14.7; Calcium 8.7 mg/dL (8.5-10.1)
--- NOTE | 2019-06-24 07:20 | NUR ---
CLOSING NOTE- NOC SHIFT ENDORSED PATIENT CARE TO DAY SHIFT NURSE NO S/SX OF DISTRESS, SOB OR PAIN.
--- NOTE | 2019-06-24 08:00 | NUR ---
Opening Shift Note Assumed care of patient, awake and alert. No S/S of distress/SOB or pain. Bed is low, locked with 2x side rails up. Call light is within reach. Instructed on POC and to call for assist PRN, will continue to monitor for changes Q1hr and PRN.
--- NOTE | 2019-06-24 08:05 | NUR ---
RADHA Drain Output RADHA drain #1: 65 ml of sanguineous fluid drained RADHA drain #2: 5ml of sanguineous fluid drained
[2019-06-24 09:00] VITALS: BP 143/60
[2019-06-24] MEDS: Ensure HIGH Protein Chocolate 8oz Bottle PO SCH ×2 (09:32→14:28)
[2019-06-24] MEDS: ASPirin 81 mg TAB PO SCH (09:32)
[2019-06-24] MEDS: DOCUSATE SOD 100 MG CAP PO SCH (09:33)
[2019-06-24] MEDS: LACTULOSE 20Gm/30ML SOLN PO SCH (09:33)
[2019-06-24] MEDS: CLOPIDOGREL BISULFATE 75 MG TAB PO SCH (09:33)
--- NOTE | 2019-06-24 10:09 | NUR ---
Physical Therapy Patient ambulating in hallway with walker assisted by physical therapist
[2019-06-24 10:56] VITALS: BP 143/60
[2019-06-24 13:00] VITALS: BP 154/64
--- NOTE | 2019-06-24 15:00 | NUR ---
MRSA Swab MRSA swab sent to lab as per protocol.
--- NOTE | 2019-06-24 15:41 | NUR ---
RADHA Drain Output RADHA drain #1: 30 ml of sanguineous fluid drained RADHA drain #2: 3ml of sanguineous fluid drained Educated patient on how to drain RADHA drainage. Patient performed a return demonstration and verbalized understanding on how to properly drain. Will continue to monitor.
--- NOTE | 2019-06-24 16:25 | NUR ---
Discharge instructions given as ordered. Encourage to follow up with PMD as instructed. All questions and concerns addressed. Patient verbalized understanding. Provided patient with information to contact surgeon Dr. Olvera for 1 week follow up appointment. Educated patient on how to empty RADHA drains and patient also performed a return demonstration. This nurse also provided the patient with information on how to contact Dr. Contreras (PCP) for follow up appointment. IV removed with catheter intact, pressure dressing applied. Telemetry unit returned to ICU. Patient taken to vehicle via wheelchair with all personal belongings, accompanied by staff. No distress noted at time of departure.
[2019-06-24 17:00] VITALS: BP 160/64
--- NOTE | 2019-06-24 17:00 | NUR ---
assessment Patient is a 83 year old female who is alert and oriented. Patients cognitive abilities are intact. Prior to admission patient lived home with family and functioned independently. Patient informed me she is able to care for her own ADLs. Per patient she will return home to her prior living arrangements post discharge and family will transport her home. Patients PCP is Dr Betsy Contreras. Patient had let breast resection. Patient may need home health for wound care on discharge. Patient has no safety issues regarding returning home on discharge. I informed patient she has a right to speak to a foster care social worker regarding all care. I informed patient she has a right to participate in any and all discharge planning. Patient has a POA and advanced directive. Patient verbalized understanding and agreed to discharge plan home. Addendum: 06/24/19 at 1702 by Amanda GRAHAM Amended: Links added.
== END 2019-06-24 16:20 | disposition home or self-care (01) | DRG 853 ==
LOC: SUR 06:23 → ICU CENTRL 06:24 → DOU IN ICU 17:09 → TELE-CENTR 06-22 13:56
PROVIDERS: ADMIT Surgery; ATTEND Internal Medicine
PROC: 30233K1 Transfusion of Nonautologous Frozen Plasma into Peripheral Vein, Percutaneous Approach (ICD-10-PCS; 2019-06-19)
PROC: 0W380ZZ Control Bleeding in Chest Wall, Open Approach (ICD-10-PCS; 2019-06-19)
PROC: 30233N1 Transfusion of Nonautologous Red Blood Cells into Peripheral Vein, Percutaneous Approach (ICD-10-PCS; 2019-06-19)
PROC: 0HTU0ZZ Resection of Left Breast, Open Approach (ICD-10-PCS; principal; 2019-06-19 07:36)
DX: R57.1 Hypovolemic shock (principal); N17.0 Acute kidney failure with tubular necrosis; D62 Acute posthemorrhagic anemia; I95.9 Hypotension, unspecified; S20.212A Contusion of left front wall of thorax, initial encounter; C50.912 Malignant neoplasm of unspecified site of left female breast; I25.10 Atherosclerotic heart disease of native coronary artery without angina pectoris; I10 Essential (primary) hypertension; E87.6 Hypokalemia; D69.6 Thrombocytopenia, unspecified; E66.9 Obesity, unspecified; E78.5 Hyperlipidemia, unspecified; D63.8 Anemia in other chronic diseases classified elsewhere; X58.XXXA Exposure to other specified factors, initial encounter; I12.9 Hypertensive chronic kidney disease with stage 1 through stage 4 chronic kidney disease, or unspecified chronic kidney disease; N18.9 Chronic kidney disease, unspecified; Z95.5 Presence of coronary angioplasty implant and graft; Z90.12 Acquired absence of left breast and nipple; Z68.35 Body mass index [BMI] 35.0-35.9, adult; Z79.02 Long term (current) use of antithrombotics/antiplatelets; Y93.89 Activity, other specified; Y92.89 Other specified places as the place of occurrence of the external cause; Y99.8 Other external cause status
CPT/HCPCS: 36415; 36600; 80048; 80053; 81001; 82805; 84132; 84484; 85014; 85018; 85025; 85610; 85730; 86850; 86900; 86901; 86920; 87081; 97116; 97530; G0378; J0330; J0690; J2001; J2250; J2405; J3430; J3480

== ENCOUNTER → 2019-12-17 | Outpatient (CLI) | payer BC ==
[~2019-12-17] MED LIST changes: -ASPI-404 PO; +ASPI-543 PO
[2019-12-17 08:09] LABS: Basophils # (auto) 0.1 10 ^3/uL (0-0.2); Basophils % (auto) 1.1 % (0.0-2.0); Eosinophils # (auto) 0.2 10 ^3/uL (0-0.8); Eosinophils % (auto) 4.2 % (0.0-7.0); Hematocrit 34.3 % (36.0-46.0); Hemoglobin 11.5 g/dL (12.2-16.2); Lymphocytes # (auto) 2.6 10 ^3/uL (0.4-5.4); Lymphocytes % (auto) 44.4 % (10.0-50.0); Mean Corpuscular Hemoglobin 31.1 pg (28.0-32.0); Mean Corpuscular Hgb Conc. 33.5 g/dL (32.0-36.0); Mean Corpuscular Volume 92.9 fL (80.0-100.0); Monocytes # (auto) 0.5 10 ^3/uL (0-1.3); Monocytes % (auto) 8.9 % (0.0-12.0); Neutrophils # (auto) 2.4 10 ^3/uL (1.6-8.6); Neutrophils % (auto) 41.4 % (37.0-80.0); Nucleated Red Blood Cells % 0.1 %; Platelet Count (auto) 209 10^3/uL (140-450); Red Blood Cells 3.69 10^6/uL (4.0-5.20); Red Cell Distribution Width 13.5 % (11.8-14.3); White Blood Cell 5.9 10^3/uL (4.4-10.8)
[2019-12-17 08:58] LABS: Albumin 3.6 g/dL (3.4-5.0); Calcium 9.2 mg/dL (8.5-10.1); Potassium 3.9 mmol/L (3.5-5.1)
[2019-12-17 09:01] LABS: BUN/Creatinine Ratio 14.4; Bilirubin, Total 0.4 mg/dL (0.2-1.0); Total Protein 6.8 g/dL (6.4-8.2)
== END | disposition home or self-care (01) ==
LOC: LAB 07:52
PROVIDERS: ATTEND Internal Medicine
DX: C50.912 Malignant neoplasm of unspecified site of left female breast (principal)
CPT/HCPCS: 36415; 80053; 83615; 85025; 86300

== ENCOUNTER → 2020-01-22 | Outpatient (CLI) | payer BC ==
[2020-01-22 09:05] LABS: Basophils # (auto) 0.1 10 ^3/uL (0-0.2); Eosinophils # (auto) 0.3 10 ^3/uL (0-0.8); Hematocrit 39.6 % (36.0-46.0); Hemoglobin 12.9 g/dL (12.2-16.2); Lymphocytes # (auto) 2.3 10 ^3/uL (0.4-5.4); Lymphocytes % (auto) 34.6 % (10.0-50.0); Mean Corpuscular Hemoglobin 30.3 pg (28.0-32.0); Mean Corpuscular Hgb Conc. 32.6 g/dL (32.0-36.0); Monocytes # (auto) 0.5 10 ^3/uL (0-1.3); Monocytes % (auto) 7.3 % (0.0-12.0); Neutrophils # (auto) 3.6 10 ^3/uL (1.6-8.6); Neutrophils % (auto) 53.1 % (37.0-80.0); Platelet Count (auto) 239 10^3/uL (140-450); Red Blood Cells 4.26 10^6/uL (4.0-5.20); Red Cell Distribution Width 12.7 % (11.8-14.3); White Blood Cell 6.7 10^3/uL (4.4-10.8)
[2020-01-22 09:38] LABS: Albumin 3.8 g/dL (3.4-5.0); Calcium 9.6 mg/dL (8.5-10.1)
[2020-01-22 09:42] LABS: Bilirubin, Total 0.4 mg/dL (0.2-1.0); Total Protein 7.4 g/dL (6.4-8.2)
[2020-01-22 09:52] LABS: % Iron Saturation 27.8 % (15-50); Ferritin 69.4 ng/mL (10-322); Folate (Folic Acid) 9.44 ng/mL (5.38-24)
== END | disposition home or self-care (01) ==
LOC: LAB 08:42
PROVIDERS: ATTEND Internal Medicine
DX: C50.912 Malignant neoplasm of unspecified site of left female breast (principal)
CPT/HCPCS: 36415; 80053; 82306; 82607; 82728; 82746; 83540; 83550; 83615; 85025; 86300

== ENCOUNTER → 2020-05-21 | Outpatient (CLI) | payer BC ==
[~2020-05-21] MED LIST changes: +AMLO-489 PO; -AMLO5TAB15 PO
[2020-05-21 09:24] LABS: Basophils # (auto) 0.1 10 ^3/uL (0-0.2); Eosinophils # (auto) 0.2 10 ^3/uL (0-0.8); Eosinophils % (auto) 3.2 % (0.0-7.0); Hemoglobin 12.5 g/dL (12.2-16.2); Lymphocytes # (auto) 2.6 10 ^3/uL (0.4-5.4); Lymphocytes % (auto) 43.8 % (10.0-50.0); Mean Corpuscular Hemoglobin 31.8 pg (28.0-32.0); Mean Corpuscular Hgb Conc. 34.6 g/dL (32.0-36.0); Monocytes # (auto) 0.5 10 ^3/uL (0-1.3); Monocytes % (auto) 8.6 % (0.0-12.0); Neutrophils # (auto) 2.6 10 ^3/uL (1.6-8.6); Neutrophils % (auto) 43.4 % (37.0-80.0); Nucleated Red Blood Cells % 0.1 %; Platelet Count (auto) 203 10^3/uL (140-450); Red Blood Cells 3.92 10^6/uL (4.0-5.20); Red Cell Distribution Width 13.5 % (11.8-14.3)
[2020-05-21 10:02] LABS: Potassium 3.7 mmol/L (3.5-5.1)
[2020-05-21 10:08] LABS: Albumin 3.6 g/dL (3.4-5.0); BUN/Creatinine Ratio 36.3; Bilirubin, Total 0.6 mg/dL (0.2-1.0); Calcium 9.7 mg/dL (8.5-10.1)
== END | disposition home or self-care (01) ==
LOC: LAB 08:36
PROVIDERS: ATTEND Internal Medicine
DX: C50.912 Malignant neoplasm of unspecified site of left female breast (principal); M85.80 Other specified disorders of bone density and structure, unspecified site; D64.9 Anemia, unspecified
CPT/HCPCS: 36415; 80053; 83615; 85025; 86300